=== PATIENT | female | born 1955 | race Caucasian/White ===

== ENCOUNTER 2022-10-15 12:49 | Outpatient (REF) | payer MEDICARE, MEDICAID, SELFPAY ==
--- NOTE | ~2022-10-15 | XR_ITS ---
EXAMINATION: XR LUMBOSACRAL SPINE CLINICAL INFORMATION: Status post fusion of spine. COMPARISON: None available. TECHNIQUE: AP and lateral views of the lumbosacral spine. FINDINGS: There is bony demineralization. There is a slight lumbar dextroscoliosis. There is a moderate L3 upper endplate compression fracture. At L4-L5, there has been a prior posterior fusion, with intact posterior fixator rods, pedicular screws and disc spacers. There is a 5 mm anterolisthesis at this level. At L5-S1, there is marked degenerative disc disease. There is multi-level lumbar spondylosis. The paravertebral soft tissues are unremarkable. XR/XR lumbar spine 2-3V IMPRESSION: 1. There is an age-indeterminate moderate L3 upper endplate compression fracture. 2. There is intact orthopedic hardware related to an L4-L5 posterior fusion and discectomies. No hardware failure or loosening is seen. 3. There is marked degenerative disc disease at L5-S1. 4. There is a slight lumbar dextroscoliosis.
== END 2022-10-15 12:50 | disposition home or self-care (01) ==
LOC: HO.HOSX 12:49
PROVIDERS: Visit Provider Neurological Surgery
DX: M43.26 Fusion of spine, lumbar region (principal)
CPT/HCPCS: 72100; 99212